=== PATIENT | female | born 1995 | race Hispanic/Latino ===

== ENCOUNTER 2019-09-26 10:28 | Inpatient (IN) | payer BC ==
[2019-09-26] MEDS ORDERED: MAGNESIUM SULFATE 4 GM/100 ML BAG IV ONE (10:31)
--- NOTE | 2019-09-26 10:39 | History and Physical Report ---
History of Present Illness Date of examination: 09/26/19 Chief complaint: GOULD and seeing spots, 7 days postop, dx pre-e History of present illness: b/p elevated, pt c/o GOULD w/ visual disturbances (seeing spots) since discharge home. incision healing well, sterilstrips removed. some firmness noted above incision but no drainage or bleeding present. b/p repeated in semi-fowlers position after 5 minutes of rest 170/110. advised patient she needs to be readmitted for b/p management, dr. Frey consulted. Patient going straight to [facility] for admission. Babs RN made aware ...................................................................Nena Gonzalez CNM September 26, 2019 10:28 AM Post Operative Visit Date of operation: 09/19/2019 Type of operation: Caesarian section Days Post-Op 7 Review of Symptoms Abdominal pain yes Vasomotor symptoms no Fatigue no Urinary, complaints of none Vaginal discharge none Bleeding 2 pads/day Physical Exam Incision site [email or web address] Incision findings Healing well Post-op wound care was discussed with the patient. Vital Signs: Patient Profile: 24 Years Old Female Height: 59 inches Weight: 175 pounds BMI: 35.34 Temp: 97.5 degrees F BP sittin / 110 (right arm) Past History Past Surgical History: section (09/19/2019) - Obstetrical History : 1 Para: 1 Hx # Term Pregnancies: 1 Number of Living Children: 1 Medications and Allergies Allergies Allergy/AdvReac Type Severity Reaction Status Date / Time No Known Allergies Allergy Verified 08/04/19 01:40 Home Medications Medication Instructions Recorded Confirmed Last Taken Type Ibuprofen [Motrin 800 MG tab] 800 mg PO TID PRN #30 tablet 09/19/19 Unknown Rx oxyCODONE /ACETAMINOPHEN [Percocet 1 - 2 tab PO Q6HR PRN #20 tablet 09/19/19 Unknown Rx 5/325 mg] Active Meds: Active Medications Lactated Ringer's (Lactated Ringers) 1,000 mls @ 125 mls/hr IV DIRECT JACQUES Magnesium Sulfate (Magnesium Sulfate 4gm/100ml) 4 gm in 100 mls @ 300 mls/hr IV ONCE ONE Stop: 09/26/19 10:50 Magnesium Sulfate (Magnesium Sulfate 40gm/1000ml) 40 gm in 1,000 mls @ 50 mls/hr IV DIRECT JACQUES Review of Systems All systems: negative Eyes: other (visual changes associated with pre-e, seeing spots) Cardiovascular: no chest pain, no palpitations, no rapid/irregular heart beat Respiratory: no cough, no shortness of breath, no congestion, no wheezing Breasts: normal, Gastrointestinal: no abdominal pain Neurological: headaches Psychiatric: anxiety - Physical Exam Breasts: Positive: normal, Cardiovascular: Regular rate Lungs: Positive: Clear to auscultation, Normal air movement Abdomen: Positive: normal appearance, soft, other (incision healing well, firmness noted above incision. no drainage or bleeding.) Extremities: Positive: edema (2+ BLE) Deep Tendon Reflex Grade: Normal but brisk +3 Results All other labs normal. Assessment and Plan pt in office today for 1 week f/u after c/s, initial b/p 160/110. rechecked after 5 minutes of rest 170/110. pt c/o frequent severe GOULD unrelieved by ibuprofen and Tylenol, and seeing spots. Admission orders in EMR for b/p management and mag sulfate. - Patient Problems (1) Pre-eclampsia Status: Acute Plan to address problem: Labetalol 200mg PO BID and titrate as needed Mag sulfate 2gm/hr Strict I&O Pre-e labs (2) delivery delivered Status: Acute
[2019-09-26] MEDS: LACTATED RINGERS 1,000 ML IV SCH ×2 (11:53→23:43)
[2019-09-26 12:12] LABS: Hematocrit 33.5 % (30.3-42.9); Hemoglobin 11.5 gm/dl (10.1-14.3); Mean Corpuscular HGB Conc 34 % (30-34); Mean Corpuscular Volume 88 fl (79-97); Platelet Count 219 K/mm3 (140-440); Red Cell Distribution Width 13.8 % (13.2-15.2)
[2019-09-26] MEDS: MAGNESIUM SULFATE 40GM/1000ML 40 GM/1,000 ML BAG IV SCH (12:25)
[2019-09-26 12:29] LABS: Alanine Aminotransferase 12 units/L (7-56); Uric Acid 6.3 mg/dL (3.5-7.6)
[2019-09-26 14:52] LABS: Bilirubin,Urine NEG (Negative); Blood,Urine MOD (Negative); Color,Urine Colorless (Yellow); Mucus,Urine FEW /HPF; Protein,Urine <15 mg/dL mg/dL (Negative); Urobilinogen,Urine < 2.0 mg/dL (<2.0)
[2019-09-26] MEDS ORDERED: hydrALAZINE 20 MG/1 ML INJ IV ONE (15:00)
[2019-09-27] MEDS ORDERED: hydrALAZINE 20 MG/1 ML INJ IV ONE (01:00)
--- NOTE | 2019-09-27 07:21 | Progress Note ---
Assessment and Plan VS improved, output adequate. Will continue to monitor. Discussed plan for d/c of mag at 1200 and transfer upstairs. Pt agreeable with plan. No additional questions or concerns. THERESE Sharif - Patient Problems (1) Pre-eclampsia Current Visit: Yes Status: Acute Plan to address problem: Labetalol 200mg PO BID and titrate as needed Mag sulfate 2gm/hr-d/c at 1200, continue monitoring BP closely. Transfer upstairs for monitoring. Strict I&O (2) delivery delivered Current Visit: Yes Status: Acute Subjective - Subjective Date of service: 09/27/19 Principal diagnosis: postop day #8, readmit for pre-e Interval history: b/p elevated, pt c/o GOULD w/ visual disturbances (seeing spots) since discharge home. incision healing well, sterilstrips removed. some firmness noted above incision but no drainage or bleeding present. b/p repeated in semi-fowlers position after 5 minutes of rest 170/110. advised patient she needs to be readmitted for b/p management, dr. Frey consulted. Patient going straight to [facility] for admission. Babs RN made aware ...................................................................Nena Gonzalez CNM September 26, 2019 10:28 AM Post Operative Visit Date of operation: 09/19/2019 Type of operation: Caesarian section Days Post-Op 7 Review of Symptoms Abdominal pain yes Vasomotor symptoms no Fatigue no Urinary, complaints of none Vaginal discharge none Bleeding 2 pads/day Physical Exam Incision site [email or web address] Incision findings Healing well Post-op wound care was discussed with the patient. Vital Signs: Patient Profile: 24 Years Old Female Height: 59 inches Weight: 175 pounds BMI: 35.34 Temp: 97.5 degrees F BP sittin / 110 (right arm) Patient reports: appetite normal, voiding normally, pain well controlled, ambulating normally (Pt resting comfor), no nauseated [place]: doing well (Rooming in for . FOB at bedside. ) Objective - Vital Signs Latest vital signs: Vital Signs Temp Pulse Resp BP Pulse Ox 09/27/19 07:12 88 98 09/27/19 07:07 78 97 09/27/19 07:02 81 98 09/27/19 07:01 84 133/78 09/27/19 06:57 74 96 09/27/19 06:52 75 96 09/27/19 06:47 73 96 09/27/19 06:42 70 96 09/27/19 06:41 75 114/57 09/27/19 06:37 74 96 09/27/19 06:32 69 97 09/27/19 06:27 75 95 09/27/19 06:22 83 97 09/27/19 06:21 73 108/57 09/27/19 06:17 71 96 09/27/19 06:12 73 95 09/27/19 06:07 76 96 09/27/19 06:02 75 95 09/27/19 06:01 75 115/58 09/27/19 05:57 76 95 09/27/19 05:55 76 93 09/27/19 05:52 77 95 09/27/19 05:49 70 94 09/27/19 05:47 72 95 09/27/19 05:42 72 96 09/27/19 05:41 73 109/59 09/27/19 05:37 73 95 09/27/19 05:32 73 95 09/27/19 05:27 73 95 09/27/19 05:22 73 95 09/27/19 05:21 68 122/58 09/27/19 05:17 72 95 09/27/19 05:12 72 95 09/27/19 05:09 98.2 F 16 09/27/19 05:07 72 95 09/27/19 05:02 72 96 09/27/19 05:01 67 118/59 09/27/19 04:57 72 96 09/27/19 04:52 70 96 09/27/19 04:47 76 92 09/27/19 04:45 69 93 09/27/19 04:42 71 96 09/27/19 04:41 69 130/74 09/27/19 04:37 72 97 09/27/19 04:32 75 98 09/27/19 04:27 77 98 09/27/19 04:22 82 99 09/27/19 04:21 81 153/86 09/27/19 04:17 82 100 09/27/19 04:08 76 99 09/27/19 04:03 79 98 09/27/19 04:02 78 154/89 09/27/19 03:58 78 99 09/27/19 03:53 79 100 09/27/19 03:48 85 100 09/27/19 03:43 81 99 09/27/19 03:41 82 144/82 09/27/19 03:38 82 98 09/27/19 03:33 83 99 09/27/19 03:28 83 99 09/27/19 03:23 87 98 09/27/19 03:21 81 138/74 09/27/19 03:18 82 98 09/27/19 03:13 91 H 98 09/27/19 03:06 78 96 09/27/19 03:01 84 131/69 96 09/27/19 02:56 81 97 09/27/19 02:51 81 97 09/27/19 02:46 80 97 09/27/19 02:41 78 131/65 97 09/27/19 02:36 80 97 09/27/19 02:31 80 97 09/27/19 02:26 79 97 09/27/19 02:22 73 163/72 09/27/19 02:21 74 97 09/27/19 02:16 80 97 09/27/19 02:11 76 97 09/27/19 02:06 76 97 09/27/19 02:01 75 134/64 98 09/27/19 01:56 80 97 09/27/19 01:51 74 97 09/27/19 01:46 73 98 09/27/19 01:41 77 133/67 98 09/27/19 01:38 80 137/71 09/27/19 01:36 74 97 09/27/19 01:31 78 98 09/27/19 01:26 86 98 09/27/19 01:14 82 98 09/27/19 01:10 98.1 F 17 09/27/19 01:09 83 98 09/27/19 01:04 78 98 09/27/19 01:01 80 136/74 09/27/19 00:59 80 98 09/27/19 00:54 80 98 09/27/19 00:49 80 96 09/27/19 00:44 75 175/85 99 09/27/19 00:43 72 153/84 09/27/19 00:41 75 144/83 09/27/19 00:39 88 98 09/27/19 00:34 78 99 09/27/19 00:27 82 99 09/27/19 00:22 78 99 09/27/19 00:21 81 175/85 09/27/19 00:17 80 98 09/27/19 00:12 84 97 09/27/19 00:07 82 99 09/27/19 00:02 81 98 09/27/19 00:01 77 161/99 09/27/19 00:00 81 156/95 09/26/19 23:57 83 98 09/26/19 23:52 83 99 09/26/19 23:47 79 162/98 98 09/26/19 23:42 85 98 09/26/19 23:41 86 178/102 09/26/19 23:37 85 99 09/26/19 23:27 84 99 09/26/19 23:22 87 174/92 98 09/26/19 23:17 82 98 09/26/19 23:12 79 98 09/26/19 23:07 82 97 09/26/19 23:02 91 H 98 09/26/19 23:01 83 137/78 09/26/19 22:57 72 94 09/26/19 22:52 75 95 09/26/19 22:47 79 96 09/26/19 22:42 73 94 09/26/19 22:41 72 138/77 94 09/26/19 22:37 78 97 09/26/19 22:32 75 96 09/26/19 22:27 78 97 09/26/19 22:22 76 163/94 98 09/26/19 22:17 83 99 09/26/19 22:12 79 98 09/26/19 22:05 77 98 09/26/19 22:01 78 148/83 09/26/19 22:00 84 97 09/26/19 21:55 85 98 09/26/19 21:50 76 98 09/26/19 21:45 84 98 09/26/19 21:41 87 155/90 09/26/19 21:40 83 99 08/14/20 21:39 75 151/84 09/26/19 21:35 88 99 09/26/19 21:32 81 149/99 09/26/19 21:30 83 98 09/26/19 21:25 82 98 09/26/19 21:20 98.1 F 84 17 98 09/26/19 21:12 77 97 09/26/19 21:07 76 97 09/26/19 21:02 87 156/85 99 09/26/19 20:57 78 99 09/26/19 20:52 89 99 09/26/19 20:47 81 99 09/26/19 20:42 85 169/94 99 09/26/19 20:37 91 H 100 09/26/19 20:32 85 97 09/26/19 20:27 86 100 09/26/19 20:22 91 H 100 09/26/19 20:21 82 164/94 09/26/19 20:16 89 100 09/26/19 20:11 85 100 09/26/19 20:04 80 99 09/26/19 20:01 76 137/78 09/26/19 19:59 75 98 09/26/19 19:54 75 98 09/26/19 19:49 70 99 09/26/19 19:44 76 100 09/26/19 19:41 76 156/87 09/26/19 19:39 80 99 09/26/19 19:34 76 98 09/26/19 19:29 78 99 09/26/19 19:24 75 99 09/26/19 19:21 78 185/95 09/26/19 19:19 72 98 09/26/19 19:14 71 98 09/26/19 19:09 75 100 09/26/19 19:04 79 98 09/26/19 18:59 88 98 09/26/19 18:53 80 99 09/26/19 18:48 80 99 09/26/19 18:43 78 99 09/26/19 18:38 80 99 09/26/19 18:33 79 98 09/26/19 18:28 84 98 09/26/19 18:23 73 98 09/26/19 18:20 70 140/88 09/26/19 18:18 77 99 09/26/19 18:13 78 98 09/26/19 18:03 73 99 09/26/19 17:58 84 97 09/26/19 17:53 76 97 09/26/19 17:48 76 98 09/26/19 17:43 85 98 09/26/19 17:38 91 H 98 09/26/19 17:33 99 H 97 09/26/19 17:28 83 97 09/26/19 17:23 85 98 09/26/19 17:21 81 158/86 09/26/19 17:18 84 97 09/26/19 17:08 85 98 09/26/19 17:03 79 97 09/26/19 16:59 80 131/77 09/26/19 16:58 81 97 09/26/19 16:53 79 98 09/26/19 16:48 91 H 98 09/26/19 16:44 89 142/95 09/26/19 16:43 93 H 98 09/26/19 16:38 77 99 09/26/19 16:33 78 98 09/26/19 16:28 90 98 09/26/19 16:20 86 100 09/26/19 16:15 92 H 99 09/26/19 16:14 83 147/78 09/26/19 16:10 88 99 09/26/19 16:05 97 H 97 09/26/19 16:00 87 98 09/26/19 15:59 86 139/74 09/26/19 15:55 89 97 09/26/19 15:50 86 99 09/26/19 15:45 97 H 98 09/26/19 15:44 81 136/72 09/26/19 15:42 97.8 F 16 09/26/19 15:40 90 98 09/26/19 15:35 79 98 09/26/19 15:30 99 H 99 09/26/19 15:22 87 97 09/26/19 15:17 87 97 09/26/19 15:14 92 H 146/77 09/26/19 15:12 94 H 98 09/26/19 15:07 84 96 09/26/19 15:02 84 98 09/26/19 14:59 82 142/72 09/26/19 14:57 80 99 09/26/19 14:52 81 99 09/26/19 14:47 88 98 09/26/19 14:44 85 163/85 09/26/19 14:42 84 99 09/26/19 14:37 80 99 09/26/19 14:32 82 99 09/26/19 14:29 77 151/84 09/26/19 14:27 87 99 09/26/19 14:21 76 97 09/26/19 14:16 73 97 09/26/19 14:14 73 155/89 09/26/19 14:11 71 97 09/26/19 14:06 71 99 09/26/19 14:01 71 98 09/26/19 13:59 81 164/95 09/26/19 13:56 83 98 09/26/19 13:51 69 98 09/26/19 13:46 74 97 09/26/19 13:44 65 145/86 09/26/19 13:41 70 98 09/26/19 13:36 67 97 09/26/19 13:33 66 142/82 09/26/19 13:31 76 97 09/26/19 13:26 71 98 09/26/19 13:21 69 98 09/26/19 13:15 78 97 09/26/19 13:14 71 130/71 09/26/19 13:10 72 98 09/26/19 13:05 73 97 09/26/19 13:00 75 97 09/26/19 12:59 75 144/74 09/26/19 12:55 75 98 09/26/19 12:50 76 97 09/26/19 12:45 75 97 09/26/19 12:44 77 144/87 09/26/19 12:40 73 97 09/26/19 12:35 78 97 09/26/19 12:30 82 97 09/26/19 12:29 81 138/88 09/26/19 12:25 84 97 09/26/19 12:23 74 131/72 09/26/19 12:20 76 97 09/26/19 12:15 76 97 09/26/19 12:14 71 131/71 09/26/19 12:10 70 97 09/26/19 12:05 70 98 09/26/19 12:00 70 97 09/26/19 11:59 61 160/76 09/26/19 11:55 63 98 09/26/19 11:50 69 97 09/26/19 11:44 65 176/87 09/26/19 11:30 98.1 F 16 Intake and Output 09/26/19 09/26/19 09/27/19 15:59 23:59 07:59 Intake Total 360 1240 Output Total 600 1100 Balance -240 140 Intake: IV 1000 Lactated Ringers 1,000 ml 1000 @ 125 mls/hr IV DIRECT JACQUES Rx#:[id number] Oral 360 240 Output: Urine 600 1100 Void 600 1100 Other: Total, Intake Amount 360 240 Total, Output Amount 600 400 # Voids Void 1 Weight 81.647 kg - Exam Breasts: Present: deferred Lungs: Present: Normal air movement Abdomen: Present: normal appearance, soft Uterus: Present: normal, firm (Pt resting comfortably in bed, no complaints verbalized, states that she only slept two hours last night. ) Extremities: Present: edema Deep Tendon Reflex Grade: Normal but brisk +3 Incision: Present: normal, dry, intact - Labs Labs: Abnormal lab results 09/26/19 Range/Units 11:56 Creatinine 0.5 L (0.6-1.2) mg/dL Lactate Dehydrogenase 235 H (91-180) units/L
[2019-09-27] MEDS: MAGNESIUM SULFATE 40GM/1000ML 40 GM/1,000 ML BAG IV SCH (08:24)
[2019-09-27] MEDS ORDERED: oxyCODONE /ACETAMINOPHEN 5-325MG TAB PO ONE (16:04)
--- NOTE | 2019-09-28 11:51 | Discharge Summary ---
Providers - Providers Date of Admission: 09/26/19 10:55 Date of discharge: 09/28/19 Attending physician: CARLOS OWEN Primary care physician: CARLOS OWEN Hospitalization Reason for admission: b/p management, pre-e Condition: Good Pertinent studies: pre-e labs normal, not significant Hospital course: blood pressure management in the period. Disposition: DC-01 TO HOME OR SELFCARE - Discharge Diagnoses (1) Pre-eclampsia Status: Acute (2) delivery delivered Status: Acute Core Measure Documentation - Palliative Care Palliative Care/ Comfort Measures: Not Applicable - Core Measures Any of the following diagnoses?: none Exam - Constitutional Vitals: Temp Pulse Resp BP Pulse Ox 97.9 F 79 18 149/90 95 09/28/19 08:15 09/28/19 10:48 09/28/19 08:15 09/28/19 10:48 09/28/19 05:38 General appearance: Present: no acute distress, well-nourished - EENT Eyes: Present: PERRL ENT: hearing intact, clear oral mucosa - Neck Neck: Present: supple, normal ROM - Respiratory Respiratory effort: normal Respiratory: bilateral: CTA - Extremities Extremity abnormal: edema - Integumentary Integumentary: Present: clear, warm, dry - Musculoskeletal Musculoskeletal: gait normal, strength equal bilaterally - Psychiatric Psychiatric: appropriate mood/affect, intact judgment & insight - Neurologic Neurologic: CNII-XII intact, moves all extremities - Additional findings Additional findings: no GOULD, visual changes or epigastric pain Plan Activity: no restrictions Diet: low salt Wound: open to air, keep clean and dry Follow up with: CARLOS OEWN MD [Primary Care Provider] - 3 Days (Please call [phone] to schedule a blood pressure check this week. Take blood pressure 1 hour after labetalol and call for blood pressure higher than 140/90, or for any headaches, virsual changes or upper abdominal pain.) Prescriptions: Labetalol HCl [Labetalol 300mg TAB] 300 mg PO BID #60 tablet
[2019-09-28 12:39] VITALS: BP 144/73
== END 2019-09-28 13:45 | disposition home or self-care (01) | DRG 776 ==
LOC: UNDOADMIN 10:28 → 3A 10:28 → LD 10:55 → OB 09-27 12:22
PROVIDERS: ADMIT Obstetrics & Gynecology; ATTEND Obstetrics & Gynecology
DX: O14.95 Unspecified pre-eclampsia, complicating the puerperium (principal); Z79.899 Other long term (current) drug therapy
CPT/HCPCS: 36415; 81001; 82565; 83615; 83735; 84450; 84460; 84550; 85027; G0378; J0360; J3475; J7120